=== PATIENT | male | born 1955 | race Hispanic/Latino ===

== ENCOUNTER → 2017-12-12 | Outpatient (CLI) | payer BC ==
--- NOTE | 2017-12-12 16:55 | Diagnostic Imaging Report ---
PROCEDURE:KNEE RIGHT THREE VIEWS COMPARISON:None. INDICATIONS:KNEE PAIN FINDINGS: There are no fractures, dislocations, lytic or blastic lesions. The bones are well-mineralized. Mild degenerative changes predominantly involving the medial and patellofemoral compartments. CONCLUSION: Mild degenerative osteoarthrosis. Félix Moreira M.D. Dictated by: Félix Moreira M.D. on 12/12/2017 at 16:57 Electronically approved by: Félix Moreira M.D. on 12/12/2017 at 16:57
== END ==
LOC: RAD 16:01
PROVIDERS: ATTEND Family Medicine
DX: M25.561 Pain in right knee (principal)